=== PATIENT | male | born 1940 | race Caucasian/White ===

== ENCOUNTER → 2017-11-25 12:44 | Outpatient (CLI) | payer MEDICARE, OTHER ==
--- NOTE | ~2017-11-25 | EC ---
PATIENT:BIANKA CARRERA DATE OF SERVICE: 11/25/17 SEX: M MEDICAL RECORD: [id number] DATE OF : 42 LOCATION:[facility] AGE OF PATIENT: 77 ADMISSION DATE: 11/25/17 REFERRING PHYSICIAN: INTERPRETING PHYSICIAN: CHERISE KENNEDY MD ECHOCARDIOGRAM REPORT ECHO CHARGES 4 ECHO COMPLETE CLINICAL DIAGNOSIS: CAD/ANGINA/HTN ECHOCARDIOGRAPHIC MEASUREMENTS (adult normal given) AC root (d.<3.7cm) 3.4 cm LV Septum d (<1.2 cm> 1.6 cm Valve Excursion 1.6 cm LV Septum (systole) 1.8 cm Left Atria (s.<4.0cm> 3.3 cm LVPW d(<1.2cm) 1.6 cm RV (d.<2.3cm) 4.4 cm LVPW (sytole) 1.7 cm LV diastole(<5.6CM) 4.6 cm MV E-F(>70mm/sec) cm LV systole 3.4 cm LVOT Diameter 1.7 cm MV exc.(>10mm) 1.0 cm Est.ejection fraction (50-75%) % Pericardial Effusion N DOPPLER: LVIT cm/sec A 97.0 cm/sec E 73.0 cm/sec LA cm/sec RVSP 23 mmHg LVOT 119 cm/sec AOP1/2T m/s Asc. Ao 138 cm/sec RVOT cm/sec RA cm/sec PA cm/sec AV Gradient Peak 7.60 mmHg AV Mean 3.64 mmHg AV Area 2.7 cm MV Gradient Peak 4.97 mmHg MV Mean 2.44 mmHg MV Area cm COMMENTS: Diagrammer And Seamer: Megan PALACIOS Billing Assistant: 4 Dr. Kennedy TAPE# PACS DATE OF SERVICE: 11/25/2017 PROCEDURE: Transthoracic echocardiogram. FINDINGS: 1. The echocardiogram was difficult to visualize distinct structures. Overall, this is a qualitative view rather than quantitative. 2. The left ventricle appears to have left ventricular hypertrophy with inflow characteristics consistent with diastolic dysfunction. The EF is 60% to 65%. There does not appear to be any regional wall motion abnormalities. ECHOCARDIOGRAM REPORT [id number] BIANKA CARRERA 3. The left atrium is not well visualized, but appears to be grossly normal. 4. The aortic valve again not well visualized, but by Doppler interrogation appears to be normal. 5. The mitral valve not well visualized, but by Doppler evaluation appears to be overall normal. 6. The tricuspid valve appears to be normal. 7. The right ventricle appears to be normal size to mildly dilated as well as the right atrium, but otherwise normal function. CONCLUSIONS: There is evidence of hypertensive heart disease with normal LV systolic function and potentially mildly dilated right-sided structures. TRANSINT:[id number] Voice Confirmation ID: [id number] DOCUMENT ID: [id number] CHERISE KENNEDY MD at 1001 CC: [id number] DICTATION DATE: 11/26/17 1130 PRODUCTION SUPV: 11/26/17 1245 DEP CLI 11/25/17 [id number] [place] [address]
== END | disposition home or self-care (01) ==
LOC: D.ECHO 12:44
DX: I25.10 Atherosclerotic heart disease of native coronary artery without angina pectoris (principal); I20.9 Angina pectoris, unspecified; I10 Essential (primary) hypertension

== ENCOUNTER → 2017-12-01 16:55 | Outpatient (CLI) | payer MEDICARE, OTHER ==
[2017-12-01 17:58] LABS: CHOL - HDL RATIO 3.3 ratio (2.3-4.9); LDL-HDL RATIO 1.7 ratio (1.5-3.5)
== END | disposition home or self-care (01) ==
LOC: D.LABREF 16:55
PROVIDERS: Internal Medicine Cardiovascular Disease
DX: E78.5 Hyperlipidemia, unspecified (principal)

== ENCOUNTER 2018-06-08 20:36 | Inpatient (IN) | payer MEDICARE, OTHER ==
[~2018-06-08] VITALS: Ht 175.3 cm; Wt 85.7 kg
[2018-06-08 21:02] VITALS: BP 144/93
[2018-06-08 21:19] LABS: BASOPHILS 0.2 % (0-2); EOSINOPHILS 1.8 % (0-7); HEMATOCRIT 39.8 % (42.0-54.0); IMMATURE GRANULOCYTES 0.3 % (0-5); LYMPHOCYTES 11.3 % (15-50); MCH 31.9 pg (26.0-34.0); MCHC 35.2 g/dL (31.0-37.0); MCV 90.7 fL (80.0-100.0); MEAN PLATELET VOLUME 9.3 fL (7.4-10.4); MONOCYTES 11.6 % (2-11); NEUTROPHILS 74.8 % (40-80); PLATELET COUNT 176 10x3/uL (130-400); RBC 4.39 10x6/uL (4.20-6.10); RDW 13.1 % (11.5-14.5); WBC 9.3 10x3/uL (4.8-10.8)
[2018-06-08 21:40] VITALS: BP 161/93
[2018-06-08 21:46] LABS: ALBUMIN 3.8 g/dL (3.4-5.0); ALKALINE PHOSPHATASE 61 U/L (46-116); ALT (SGPT) 35 U/L (10-68); BILIRUBIN - TOTAL 0.88 mg/dL (0.2-1.3); CALC OSMOLALITY 270 mosm/kg (275-300); CALCIUM 8.4 mg/dL (8.5-10.1); CHLORIDE - SERUM 102 mmol/L (98-107); CREATININE - SERUM 0.8 mg/dL (0.6-1.3); GLUCOSE 127 mg/dL (74-106); POTASSIUM - SERUM 3.8 mmol/L (3.5-5.1); PROTEIN - SERUM 7.3 g/dL (6.4-8.2); SODIUM 135 mmol/L (136-145); UREA NITROGEN 10 mg/dL (7-18); eGFR NON AFRICAN AMERICAN > 90 mL/min (90-120)
[2018-06-08 21:54] LABS: AMYLASE - SERUM 61 U/L (25-115); CKMB 2.2 U/L (0.0-3.6); CREATINE KINASE 123 UL (21-232); LIPASE 116 U/L (73-393)
[2018-06-08 21:56] LABS: TROPONIN-I < 0.017 ng/mL (0.000-0.060)
[2018-06-08 23:40] VITALS: BP 147/94
[2018-06-09 01:46] VITALS: BP 118/74; BMI 27.9
[2018-06-09 04:25] VITALS: BP 100/55
[2018-06-09 05:53] LABS: ALBUMIN 3.4 g/dL (3.4-5.0); ALKALINE PHOSPHATASE 54 U/L (46-116); ALT (SGPT) 27 U/L (10-68); AMYLASE - SERUM 46 U/L (25-115); BILIRUBIN - TOTAL 0.88 mg/dL (0.2-1.3); CALC OSMOLALITY 274 mosm/kg (275-300); CALCIUM 8.2 mg/dL (8.5-10.1); CARBON DIOXIDE 24.8 mmol/L (21.0-32.0); CHLORIDE - SERUM 104 mmol/L (98-107); CKMB 3.4 U/L (0.0-3.6); CREATINE KINASE 165 UL (21-232); CREATININE - SERUM 0.7 mg/dL (0.6-1.3); GLUCOSE 108 mg/dL (74-106); LIPASE 68 U/L (73-393); POTASSIUM - SERUM 3.9 mmol/L (3.5-5.1); PROTEIN - SERUM 6.7 g/dL (6.4-8.2); SODIUM 138 mmol/L (136-145); UREA NITROGEN 8 mg/dL (7-18); eGFR NON AFRICAN AMERICAN > 90 mL/min (90-120)
[2018-06-09 06:10] LABS: TROPONIN-I < 0.017 ng/mL (0.000-0.060)
[2018-06-09 06:30] LABS: BASOPHILS 0.3 % (0-2); EOSINOPHILS 4.2 % (0-7); HEMATOCRIT 41.2 % (42.0-54.0); IMMATURE GRANULOCYTES 0.5 % (0-5); LYMPHOCYTES 15.4 % (15-50); MCH 31.1 pg (26.0-34.0); MCV 91.6 fL (80.0-100.0); MEAN PLATELET VOLUME 9.7 fL (7.4-10.4); MONOCYTES 13.8 % (2-11); NEUTROPHILS 65.8 % (40-80); PLATELET COUNT 184 10x3/uL (130-400); RDW 13.1 % (11.5-14.5); WBC 7.9 10x3/uL (4.8-10.8)
[2018-06-09] MEDS ORDERED: NORVASC5 MG PO (09:34)
[2018-06-09] MEDS ORDERED: ALBUTEROL SULF8.5 GM INH (09:36)
[2018-06-09] MEDS ORDERED: BAYER CHEWABLE81 MG PO (09:36)
[2018-06-09] MEDS ORDERED: LIPITOR20 MG PO (09:36)
[2018-06-09] MEDS ORDERED: ISOSORBIDE MONO60 M1 PO (09:37)
[2018-06-09] MEDS ORDERED: ALTACE10 MG PO (09:38)
[2018-06-09] MEDS ORDERED: NITROSTAT0.4 MG SL (09:39)
[2018-06-09] MEDS ORDERED: ULTRAM50 MG PO (09:40)
[2018-06-09] MEDS ORDERED: TOPROL XL25 MG PO (09:41)
[2018-06-09] MEDS ORDERED: PREDNISONE2.5 MG PO (09:42)
[2018-06-09 10:18] VITALS: Ht 175.3 cm; Wt 85.7 kg
[2018-06-09 11:45] VITALS: BP 120/76
[2018-06-09 16:18] VITALS: BP 124/68
[2018-06-09 22:10] VITALS: BP 125/81
[2018-06-10 05:33] LABS: BASOPHILS 0.4 % (0-2); EOSINOPHILS 3.6 % (0-7); HEMATOCRIT 43.5 % (42.0-54.0); HEMOGLOBIN 15.1 g/dL (13.5-17.5); IMMATURE GRANULOCYTES 0.3 % (0-5); LYMPHOCYTES 16.3 % (15-50); MCH 31.8 pg (26.0-34.0); MCHC 34.7 g/dL (31.0-37.0); MCV 91.6 fL (80.0-100.0); MEAN PLATELET VOLUME 9.8 fL (7.4-10.4); MONOCYTES 12.7 % (2-11); NEUTROPHILS 66.7 % (40-80); PLATELET COUNT 188 10x3/uL (130-400); RBC 4.75 10x6/uL (4.20-6.10); WBC 7.2 10x3/uL (4.8-10.8)
[2018-06-10 05:46] VITALS: BP 140/90
[2018-06-10 05:46] LABS: APTT 29.4 SECONDS (22.8-39.4); INR 1.05 (0.85-1.17); PROTIME 13.3 SECONDS (11.6-15.0)
[2018-06-10 05:58] LABS: ALBUMIN 3.5 g/dL (3.4-5.0); ALKALINE PHOSPHATASE 70 U/L (46-116); ALT (SGPT) 31 U/L (10-68); BILIRUBIN - TOTAL 1.35 mg/dL (0.2-1.3); CALC OSMOLALITY 273 mosm/kg (275-300); CALCIUM 8.3 mg/dL (8.5-10.1); CARBON DIOXIDE 24.7 mmol/L (21.0-32.0); CHLORIDE - SERUM 103 mmol/L (98-107); CREATININE - SERUM 0.7 mg/dL (0.6-1.3); GLUCOSE 87 mg/dL (74-106); POTASSIUM - SERUM 4.4 mmol/L (3.5-5.1); PROTEIN - SERUM 6.7 g/dL (6.4-8.2); SODIUM 138 mmol/L (136-145); UREA NITROGEN 9 mg/dL (7-18); eGFR NON AFRICAN AMERICAN > 90 mL/min (90-120)
[2018-06-10 08:51] VITALS: BP 145/80
[2018-06-10 12:45] VITALS: BP 162/98
[2018-06-10 22:57] VITALS: BP 90/50
[2018-06-11 05:41] VITALS: BP 111/56
[2018-06-11 05:41] LABS: BASOPHILS 0.1 % (0-2); EOSINOPHILS 0.6 % (0-7); HEMOGLOBIN 12.5 g/dL (13.5-17.5); IMMATURE GRANULOCYTES 0.1 % (0-5); LYMPHOCYTES 9.2 % (15-50); MCH 30.9 pg (26.0-34.0); MCHC 33.8 g/dL (31.0-37.0); MCV 91.4 fL (80.0-100.0); MEAN PLATELET VOLUME 9.6 fL (7.4-10.4); MONOCYTES 8.7 % (2-11); NEUTROPHILS 81.3 % (40-80); PLATELET COUNT 173 10x3/uL (130-400); RBC 4.05 10x6/uL (4.20-6.10)
[2018-06-11 05:49] LABS: CALC OSMOLALITY 271 mosm/kg (275-300); CALCIUM 7.8 mg/dL (8.5-10.1); CARBON DIOXIDE 25.4 mmol/L (21.0-32.0); CHLORIDE - SERUM 104 mmol/L (98-107); CREATININE - SERUM 0.8 mg/dL (0.6-1.3); GLUCOSE 123 mg/dL (74-106); POTASSIUM - SERUM 4.3 mmol/L (3.5-5.1); SODIUM 136 mmol/L (136-145); UREA NITROGEN 10 mg/dL (7-18); eGFR NON AFRICAN AMERICAN > 90 mL/min (90-120)
[2018-06-11 06:35] LABS: INR 1.1 (0.85-1.17); PROTIME 13.8 SECONDS (11.6-15.0)
[2018-06-11] MEDS ORDERED: PROTONIX40 MG PO (10:43)
[2018-06-11] MEDS ORDERED: PEPCID40 MG PO (10:44)
[2018-06-11 10:48] VITALS: BP 134/75
[2018-06-11 13:31] VITALS: BP 125/80
== END 2018-06-11 14:15 | disposition home or self-care (01) | DRG 445 ==
LOC: D.ER 20:36 → D.MS 23:49 → D.EDHOLD 23:49 → D.MS 23:50
PROVIDERS: Family Medicine; Internal Medicine Gastroenterology; Internal Medicine Nephrology; Surgery
PROC: 0DB68ZX Excision of Stomach, Via Natural or Artificial Opening Endoscopic, Diagnostic (ICD-10-PCS; 2018-06-10)
PROC: 0DB58ZX Excision of Esophagus, Via Natural or Artificial Opening Endoscopic, Diagnostic (ICD-10-PCS; 2018-06-10)
PROC: 0DB98ZX Excision of Duodenum, Via Natural or Artificial Opening Endoscopic, Diagnostic (ICD-10-PCS; principal; 2018-06-10 16:15)
DX: K81.0 Acute cholecystitis (principal); J98.11 Atelectasis; J96.11 Chronic respiratory failure with hypoxia; K22.10 Ulcer of esophagus without bleeding; I10 Essential (primary) hypertension; J44.9 Chronic obstructive pulmonary disease, unspecified; Z87.891 Personal history of nicotine dependence; I25.10 Atherosclerotic heart disease of native coronary artery without angina pectoris; Z95.5 Presence of coronary angioplasty implant and graft; Z99.81 Dependence on supplemental oxygen; Z79.52 Long term (current) use of systemic steroids; M50.90 Cervical disc disorder, unspecified, unspecified cervical region; K29.60 Other gastritis without bleeding; K26.9 Duodenal ulcer, unspecified as acute or chronic, without hemorrhage or perforation; K31.7 Polyp of stomach and duodenum

== ENCOUNTER → 2019-07-26 08:15 | Outpatient (CLI) | payer MEDICARE, OTHER ==
[2018-06-09 10:18] VITALS: BMI 27.9
[~2019-07-26 08:15] MED LIST: ALBUTEROL SULF8.5 GM INH; ALTACE10 MG PO; BAYER CHEWABLE81 MG PO; ISOSORBIDE MONO60 M1 PO; LIPITOR20 MG PO; NITROSTAT0.4 MG SL; NORVASC5 MG PO; PEPCID40 MG PO; PREDNISONE2.5 MG PO; PROTONIX40 MG PO; TOPROL XL25 MG PO; ULTRAM50 MG PO
--- NOTE | 2019-07-27 16:04 | EC ---
PATIENT:BIANKA CARRERA DATE OF SERVICE: 07/26/19 SEX: M MEDICAL RECORD: [id number] DATE OF : 42 [facility] AGE OF PATIENT: 79 ADMISSION DATE: 07/26/19 REFERRING PHYSICIAN: INTERPRETING PHYSICIAN: COREY NOBLE MD ECHOCARDIOGRAM REPORT ECHO CHARGES 4 ECHO COMPLETE Date: 07/26/19 CLINICAL DIAGNOSIS: H/O CAD/HTN ECHOCARDIOGRAPHIC MEASUREMENTS (adult normal given) AC root (d.<3.7cm) 3.1 cm LV Septum d (<1.2 cm> 1.2 cm Valve Excursion 1.9 cm LV Septum (systole) 1.7 cm Left Atria (s.<4.0cm> 3.1 cm LVPW d(<1.2cm) 1.2 cm RV (d.<2.3cm) 3.4 cm LVPW (sytole) 1.8 cm LV diastole(<5.6CM) 5.6 cm MV E-F(>70mm/sec) cm LV systole 3.1 cm LVOT Diameter 2.0 cm MV exc.(>10mm) cm Est.ejection fraction (50-75%) % DOPPLER: LVIT cm/sec A 98.0 cm/sec E 69.0 cm/sec LA cm/sec RVSP 31.4 mmHg LVOT 120 cm/sec AOP1/2T m/s Asc. Ao 124 cm/sec RVOT 72.0 cm/sec RA cm/sec PA 111 cm/sec AV Gradient Peak 6.2 mmHg AV Mean 3.1 mmHg AV Area 2.8 cm MV Gradient Peak 3.1 mmHg MV Mean 1.1 mmHg MV Area cm COMMENTS: OP - HC Research Soil Scientist: 1 PRICILLA NOLANOE Crusher Assembler: 3 Dr. Black TAPE# PACS Pericardial Effusion N DATE OF SERVICE: Adequate 2D, color flow, spectral Doppler, and M-mode. Borderline LVH. LV internal dimension and wall motion normal. EF is greater than or equal to 55%.. Aortic valve is tricuspid. No evidence of stenosis by Doppler interrogation. Left atrium is normal at 3.1 cm. Mitral valve shows no prolapse. Trace MR. Right-sided chambers are grossly normal. Trace TR. TRANSINT:[id number] Voice Confirmation ID: [id number] DOCUMENT ID: [id number] ECHOCARDIOGRAM REPORT [id number] BIANKA CARRERA GREGORY A MD at 1604 CC: [id number] DICTATION DATE: 07/27/19 1308 INDUSTRIAL REFRIGERATION MECHANIC: 07/27/19 1452 DEP CLI 07/26/19 [id number] [place] [address]
== END | disposition home or self-care (01) ==
LOC: D.HCCECHO 07-23 09:30
PROVIDERS: ATTEND Internal Medicine Interventional Cardiology
DX: I51.9 Heart disease, unspecified (principal)

== ENCOUNTER → 2019-09-13 08:29 | Outpatient (CLI) | payer MEDICARE, OTHER ==
[2018-06-09 10:18] VITALS: BMI 27.9
--- NOTE | ~2019-09-13 | ST ---
PATIENT:BIANKA CARRERA MEDICAL RECORD: [id number] SEX: M LOCATION:[facility] ORDER #: ADMISSION DATE: 09/13/19 AGE OF PATIENT: 79 REFERRING PHYSICIAN: INTERPRETING PHYSICIAN: RAVIN KELLEY MD DATE OF SERVICE: 09/13/2019 INDICATION: Angina, coronary artery disease, hypertension, shortness of breath. TECHNIQUE: He was exercised on standard Lexiscan protocol with 33 mCi of sestamibi injected at peak stress, 11 mCi used previously for rest images. FINDINGS: Gated SPECT reveals preserved ejection fraction at 73% with good wall motioning and thickening and brightening throughout all segments. SPECT imaging Cardiolite was used as myocardial perfusion agent. There is reversibility inferiorly, apically, and laterally. This includes the basal, mid, apical, inferior segments, the apex itself as well as apical lateral, mid lateral, basal lateral segments. The degree of reversibility is mild to moderate. The amount of myocardium involved is large. OVERALL IMPRESSION: This is an intermediate to high risk abnormal nuclear stress test, reversibility inferiorly, apically, and laterally suggestive of multivessel hemodynamically significant coronary artery disease. TRANSINT:[id number] Voice Confirmation ID: [id number] DOCUMENT ID: [id number] RAVIN KELLEY MD CC: FLACO MARTINEZ MD [id number] DICTATION DATE: 09/13/19 1702 OB SCRUB TECH: 09/14/19 0741 [facility] CLI 09/13/19 [id number] [place] [address]
== END | disposition home or self-care (01) ==
LOC: D.HCCARDIO 08:29
PROVIDERS: ATTEND Internal Medicine Interventional Cardiology
DX: I25.10 Atherosclerotic heart disease of native coronary artery without angina pectoris (principal)

== ENCOUNTER 2019-09-23 11:29 | Outpatient (CLI) | payer MEDICARE, OTHER ==
[~2019-09-23] VITALS: Ht 175.3 cm; Wt 92.7 kg
--- NOTE | ~2019-09-23 | HEMODYNAMI ---
PATIENT:BIANKA CARRERA MEDICAL RECORD: [id number] : 42 LOCATION:[facility] ADMISSION DATE: 09/23/19 Generatedon:09/23/201913:56 Patient name: BIANKA CARRERA Patient #: [id number] : 1940 Date of study: 09/23/2019 Page: Of Hemodynamic Procedure Report Patient Data Patient Demographics Procedure consent was obtained First Name: BIANKA Gender: Male Last Name: DEBI : 1940 [facility] Initial: CANDIDO Age: 79 year(s) Patient #: [id number] Race: SSN: [id number] Additional ID: [id number] Contact details [address]: [address] [place] [address] State: [place] City: [place] Zip code: [address] Past Medical History Allergies Allergen Reaction Date Comments Reported Other allergy 09/23/2019 coreg, PCN, PNEumococcal vaccine Admission Admission Data Admission Date: 09/23/2019 Admission Time: 11:29 Lab Results Lab Result Date: 09/23/2019 Lab Result Time: 0:00 Biochemistry Name Units Result Min Max BUN mg/dl 16 --(---*)-- 7 18 Creatinine mg/dl 0.8 --(-*--)-- 0.6 1.3 eGFR ml/min 90 --(*---)-- 90 120 NONAFRICAN CBC Name Units Result Min Max Hemoglobin g/dl 15.3 --(-*--)-- 13.5 17.5 Procedure Procedure Types Cath Procedure Diagnostic Procedure LHC LHC w/Coronaries Sedation Charges Moderate Sedation up to 15 minutes Procedure Description Procedure Date Procedure Date: 09/23/2019 Procedure Start Time: 13:44 Procedure End Time: 13:54 Procedure Staff Name Function Karl Mercado MD Performing Physician Meena Quiroz RT Monitor Kaitlin Dennis RT Scrub Aleena Mcdowell RN Nurse Indication Angina Procedure Data Cath Procedure Fluoroscopy Diagnostic fluoroscopy Total fluoroscopy Time: 1.5 time: 1.5 min min Diagnostic fluoroscopy Total fluoroscopy dose: 382 dose: 382 mGy mGy Contrast Material Contrast Material Type Amount (ml) Isovue 300 51 Entry Location Entry Primary Successful Side Size Upsize Upsize Entry Closure Succes sful Closure Location (Fr) 1 (Fr) 2 (Fr) Remarks Device Remarks Femoral Right 5 Fr Exoseal artery Estimated blood loss: 10 ml Diagnostic catheters Device Type Used For End Catheter Placement MULTIPACK JL 4.0 5Fr Procedure catheter MULTIPACK 3DRC 5Fr Procedure catheter MULTIPACK Pigtail 5 Fr Ventriculography catheter Procedure Complications No complications Procedure Medications Medication Administration Route Dosage Oxygen etCO2 Nasal cannula 2 l/min Lidocaine 2% added to field 20 Heparin Flush Bag added to field 2 bags (1000units/500ml NS) 0.9% NaCl I.V. 100 ml/hr Versed I.V. 2 mg Fentanyl I.V. 50 mcg Versed I.V. 1 mg Fentanyl I.V. 50 mcg Versed I.V. 1 mg Hemodynamics Rest HGB: 15.3 (g/dl) Heart Rate: 74 (bpm) Pressure Samples Time Site Value (mmHg) Purpose Heart Use Rate(bpm) 13:50 LV 128/7,15 Snapshot 74 13:50 AO 112/62(92) Pullback 85 13:50 LV 102/20,-1 Pullback 85 Gradients Valve Time Site 1 Site 2 Mean SEP/DFP Peak To Heart Use (mmHg) (sec/min) Peak Rate (mmHg) (bpm) Aortic 13:50 LV AO 0 43 0 85 102/20,-1 112/62(92) Calculations Valve P-P Mean Valve Index Valve Source Name Gradient Area Flow (cm2) Aortic 0 0 0 0 Snapshots Pre Cath Intra NCS Post Cath Vital Signs Time Heart Resp SPO2 etCO2 NIBP (mmHg) Rhythm Pain Sedation Rate (ipm) (%) (mmHg) Status Level (bpm) 13:20:48 83 16 95 0 140/96(124) NSR 0 (11) 10(A) , No pain 13:24:58 79 18 96 26.3 128/85(102) NSR 0 (11) 10(A) , No pain 13:29:04 75 19 96 24 133/88(108) NSR 0 (11) 10(A) , No pain 13:33:11 82 26 95 0 122/87(100) NSR 0 (11) 10(A) , No pain 13:37:15 80 13 95 0 128/85(98) NSR 0 (11) 10(A) , No pain 13:41:19 79 12 94 27.7 140/100(112) NSR 0 (11) 10(A) , No pain 13:45:29 85 13 95 1.5 132/87(112) NSR 0 (11) 9(A) , No pain 13:49:37 83 12 93 0 131/85(112) NSR 0 (11) 9(A) , No pain 13:52:10 85 12 96 0 134/89(104) NSR 0 (11) 10(A) , No pain Medications Time Medication Route Dose Verified Delivered Reason Notes Eff ectiveness by by 13:30:01 Oxygen etCO2 2 Karl Buffie used for Nasal l/min [facility] Mcdowell final inspector movement assembly cannula 13:30:08 Lidocaine 2% added 20ml Karl Karl for local to vial [facility] anesthetic field MD HARDY 13:30:17 Heparin Flush added 2 Karl Kalr used for Bag to bags [facility] procedure (1000units/500ml field MD HARDY NS) 13:30:26 0.9% NaCl I.V. 100 Karl Buffie Per ml/hr [facility] Felix Mcdowell RN physician 13:37:16 Versed I.V. 2 mg [address] [facility] Felix Mcdowell RN sedation 13:37:22 Fentanyl I.V. 50 Karl Buffie for [facility] [place] [facility] Felix Mcdowell RN sedation 13:44:06 Versed I.V. 1 mg Karl Buffie for JessFelix Mcdowell RN sedation 13:44:09 Fentanyl I.V. 50 Karl Robertsonie for [facility] [place] [place] [facility] Felix Mcdowell RN sedation 13:49:24 Versed I.V. 1 mg Karl Buffie for JessFelix Mcdowell RN sedation Procedure Log Time Note 13:06:50 Diagnostic Cath Status : Elective 13:07:06 Indication : Angina 13:07:34 Informed consent obtained and on chart 13:10:09 Lab Result : eGFR NONAFRICAN 90 ml/min 13:10:09 Lab Result : Creatinine 0.8 mg/dl 13:10:09 Lab Result : BUN 16 mg/dl 13:10:09 Lab Result : Hemoglobin 15.3 g/dl 13:11:02 Procedure Status Elective Heart Cath (OP). 13:11:04 Meena Quiroz RT(R) sent for patient. Start room use. 13:11:05 Time tracking: Regular hours (M-F 7:00 - 5:00) 13:11:08 Plan of Care:Hemodynamics will remain stable., Cardiac rhythm will remain stable., Comfort level will be maintained., Respiratory function will remain adequate., Patient/ family verbilizes understanding of procedure., Procedure tolerated without complication., Recovers from procedure without complications.. 13:13:27 Patient received from Pre/Post Procedure Room to CCL 2 Alert and oriented. Tansferred to table in Supine position. 13:13:28 Warm blankets applied, and lizzy hugger turned on for patient comfort. 13:13:28 Correct patient and procedure confirmed by team. 13:13:29 ECG and BP/O2 sat monitors applied to patient. 13:19:41 Vital chart was started 13:19:46 Full Disclosure recording started 13:19:59 H&P Date Dictated: 08/31/2019 Within 30 days and on chart., H&P Addendum completed by physician on day of procedure. (MUST COMPLETE FOR ALL OUTPATIENTS). 13:20:01 Pre-procedure instructions explained to patient. 13:20:03 Family in waiting room. 13:20:05 Patient NPO since Midnight. 13:20:42 Patient allergic to Other allergycoreg, PCN, PNEumococcal vaccine 13:20:46 Is the patient allergic to Iodine/contrast media? No. 13:20:48 Was the patient premedicated? Yes 13:20:51 Is patient on blood thinner?No 13:20:55 Patient diabetic? No. 13:20:59 Snore? Yes 13:21:02 Sleep apnea? No 13:21:11 Airway obstruction? Yes COPD, asthma 13:21:15 Dentures? No ? 13:21:21 Patient pain scale 0/10 ?. 13:21:31 IV patent on arrival in left forearm with 0.9% NaCl at [facility]. 13:21:38 Lab results completed and on chart. 13:22:01 Stress Test: yes; abnormal multi 13:22:05 Risk of Mortality: .4 13:22:08 Risk of blood transfusion: .5 13:22:11 Risk of JE: 2.6 13:22:17 Right groin area was prepped with chlora-prep and draped in sterile fashion 13:22:20 Alarms reviewed by R. N. 13:22:21 Sharps counted by scrub and verified by R.N. 13:22:40 Physician paged 13:30:01 Oxygen 2 l/min etCO2 Nasal cannula was administered by Aleena Mcdowell RN; used for procedure; Verbal order read back and verified. 13:30:08 Lidocaine 2% 20ml vial added to field was administered by Karl Mercado MD; for local anesthetic; Verbal order read back and verified. 13:30:17 Heparin Flush Bag (1000units/500ml NS) 2 bags added to field was administered by Karl Mercado MD; used for procedure; Verbal order read back and verified. 13:30:26 0.9% NaCl 100 ml/hr I.V. was administered by Aleena Mcdowell RN; Per physician; Verbal order read back and verified. 13:34:44 Physician arrived 13:34:44 --------ALL STOP TIME OUT------ 13:34:45 Final Timeout: patient, procedure, and site verified with staff and physician. All members of the team are in agreement. 13:35:25 Fire Safety Assessment: A--An alcohol-based skin anteseptic being used preoperatively., C--Open oxygen or nitrous oxide is being used., D--An ESU, laser, or fiber-optic light is being used. 13:35:30 Physical assessment completed. ASA score P 2 - A patient with mild systemic disease as per Karl Mercado MD. 13:35:37 1) 90+ Normal kidney functon but urine findings or structural abnormalities or genetic trait point to kidney disease. 13:35:40 Maximum allowable contrast dose (3.7 X eGFR X 0.75)249 ml. 13:35:45 Sedation plan: IV Moderate Sedation Medication:Versed, Fentanyl 13:35:55 Zero performed for pressure channel P1 13:35:58 Zero performed for pressure channel P1 13:36:02 Zero performed for pressure channel P1 13:37:16 Versed 2 mg I.V. was administered by Aleena Mcdowell RN; for sedation; Verbal order read back and verified. 13:37:22 Fentanyl 50 mcg I.V. was administered by Buffie Mcdowell RN; for sedation; Verbal order read back and verified. 13:37:25 Use device set Femoral Dx 13:37:27 ACIST Syringe (72953) opened to sterile field. 13:37:27 Bag Decanter (2002S) opened to sterile field. 13:37:28 Medline Cath Pack ([id number]) opened to sterile field. 13:37:29 ACIST Hand Control (18066) opened to sterile field. 13:37:30 ACIST Manifold (16292) opened to sterile field. 13:37:30 DIAGNOSTIC Multipack 5Fr catheter set ([id number]) opened to sterile field. 13:37:32 SHEATH 5FR Apache (BOT453) opened to sterile field. 13:37:33 EMERALD Guide Wire (840-323) opened to sterile field. 13:37:35 Tegaderm 4 x 4 (1626W) opened to sterile field. 13:43:46 Procedure started. 13:44:06 Versed 1 mg I.V. was administered by Aleena Mcdowell RN; for sedation; Verbal order read back and verified. 13:44:09 Fentanyl 50 mcg I.V. was administered by Aleena Mcdowell RN; for sedation; Verbal order read back and verified. 13:44:35 Local anesthetic to right femoral artery with Lidocaine 2% by Karl Mercado MD.INITIAL ACCESS ONLY 13:44:45 A 5 Fr sheath was inserted into the Right Femoral artery 13:47:42 A MULTIPACK JL 4.0 5Fr catheter was advanced over the wire and used for Procedure. 13:47:46 LCA angiography performed. 13:47:49 Catheter removed. 13:47:56 A MULTIPACK 3DRC 5Fr catheter was advanced over the wire and used for Procedure. 13:48:00 RCA angiography performed. 13:49:04 Catheter removed. 13:49:24 Versed 1 mg I.V. was administered by Aleena Mcdowell RN; for sedation; Verbal order read back and verified. 13:49:53 A MULTIPACK Pigtail 5 Fr catheter was advanced over the wire and used for Ventriculography. 13:50:28 EF : 55 % 13:50:32 Catheter removed. 13:50:57 Sheath removed intact; hemostasis achieved with Exoseal to the Right Femoral artery. 13:51:09 Procedure ended.(Physican Out) 13:51:47 Fluoroscopy time 01.50 minutes. 13:51:54 Flurop Dose total: 382 13:51:54 Fluoroscopy dose: 382 mGy 13:51:58 Dose Area Product 34816 mGy/cm. 13:52:02 Contrast amount:Isovue 300 51ml. 13:52:06 Maximum allowable dose exceeded? No. 13:52:07 Sharps counted by scrub and verified by R.N. 13:52:09 Insertion/operative site no bleeding no hematoma. 13:52:15 Post-op/insertion site Right Femoral artery dressed using a 4 x 4 and Tegaderm. 13:52:17 Post Procedure Pulses reassessed and unchanged 13:52:33 Post-procedure physical assessment completed. ASA score P 2 - A patient with mild systemic disease as per Karl Mercado MD. 13:52:38 Post procedure rhythm: unchanged. 13:52:46 Estimated blood loss: 10 ml 13:52:48 Post procedure instruction explained to patient.Patient verbalizes understanding. 13:53:20 Procedure type changed to Cath procedure, Diagnostic procedure, LHC, [facility] w/Coronaries, Sedation Charges, Moderate Sedation up to 15 minutes 13:53:22 Procedure and supply charges have been captured, reviewed, submitted and are correct. 13:53:40 Procedure Complication : No complications 13:53:43 Vital chart was stopped 13:53:46 [facility] Findings: mild to moderate CAD (<70%) 13:53:48 Operative report dictated upon procedure completion. 13:53:49 See physician's report for complete and final results. 13:54:03 Report given to Pre/Post Procedure Room. 13:54:07 Patient transfered to Pre/Post Procedure Room with Stretcher. 13:54:10 Procedure ended. 13:54:10 Full Disclosure recording stopped Device Usage Item Name Manufacture Quantity Catalog Hospital Part Current Minimal L ot# / Number Charge Number Stock Stock Serial# Code ACIST Acist 1 30284 [id number] 010838 263538 20 Syringe Medical (52777) Systems Inc Bag Microtek 1 484959 37888 619292 5 Decanter Medical Inc. () Medline Medline 1 [id number] 228972 65969 868727 5 Cath Pack ([id number]) ACIST Hand Acist 1 92581 398418 810395 382966 5 Control Medical (44484) Systems Inc ACIST Acist 1 63271 138981 883083 333448 5 Manifold Medical (66675) Systems Inc DIAGNOSTIC Cardinal 1 [id number] 059619 59307 859530 30 Multipack Health 5Fr catheter set (IN0263) SHEATH 5FR Terumo 1 [id number] 144539 201013 867734 5 Apache (BEH846) EMERALD Cardinal 1 502455 342460 494841 165758 5 Guide Wire Health (502455) Tegaderm 4 3M 1 1626W 694382 547734 678206 5 x 4 (1626W) MULTIPACK Cardinal 1 095576 5 JL 4.0 5Fr Health catheter MULTIPACK Cardinal 1 459934 5 3DRC 5Fr Health catheter MULTIPACK Cardinal 1 056806 5 Pigtail 5 Health Fr catheter Signature Audit [place] Stage Time Signature Unsigned Intra-Procedure 09/23/2019 Meena Quiroz 1:54:32 PM RT(R); Aleena Mcdowell RN; Karl Mercado MD Signatures Performing Physician : Signature : Karl Mercado MD Date : Time : Monitor : Meena Quiroz Signature : RT Date : Time : Nurse : Aleena Mcdowell RN Signature : Date : Time : [facility] [address], [place] [address]
[2019-09-23 12:24] VITALS: BP 143/92; Ht 175.3 cm; Wt 92.7 kg
[2019-09-23 12:29] LABS: BASOPHILS 0.3 % (0-2); EOSINOPHILS 1.3 % (0-7); HEMATOCRIT 43.6 % (42.0-54.0); HEMOGLOBIN 15.3 g/dL (13.5-17.5); IMMATURE GRANULOCYTES 0.6 % (0-5); LYMPHOCYTES 15.7 % (15-50); MCH 32.1 pg (26.0-34.0); MCHC 35.1 g/dL (31.0-37.0); MCV 91.6 fL (80.0-100.0); MEAN PLATELET VOLUME 9.4 fL (7.4-10.4); MONOCYTES 9.7 % (2-11); NEUTROPHILS 72.4 % (40-80); RBC 4.76 10x6/uL (4.20-6.10); RDW 13.4 % (11.5-14.5); WBC 7.1 10x3/uL (4.8-10.8)
[2019-09-23 12:44] LABS: ALT (SGPT) 32 U/L (10-68); CALC OSMOLALITY 277 mosm/kg (275-300); CALCIUM 9.2 mg/dL (8.5-10.1); CHLORIDE - SERUM 103 mmol/L (98-107); CHOL - HDL RATIO 3.3 ratio (2.3-4.9); CHOLESTEROL, TOTAL 145 mg/dL (0-200); CREATININE - SERUM 0.8 mg/dL (0.6-1.3); GLUCOSE 110 mg/dL (74-106); HDL CHOLESTEROL 44 mg/dL (32-96); LDL CHOLESTEROL 80 mg/dL (0-100); LDL-HDL RATIO 1.8 ratio (1.5-3.5); POTASSIUM - SERUM 4.3 mmol/L (3.5-5.1); SODIUM 138 mmol/L (136-145); TRIGLYCERIDE 108 mg/dL (30-200); UREA NITROGEN 16 mg/dL (7-18); eGFR NON AFRICAN AMERICAN > 90 mL/min (90-120)
[2019-09-23 12:47] LABS: PLATELET COUNT 209 10x3/uL (130-400)
--- NOTE | 2019-09-23 14:16 | NUR ---
REC TO ROOM VIA STRETCHER FROM NETWORK CABLER FOR RECOVERY. MONITORING INITIATED. O2 2LNC. VSS, HR 76 NSR, RR 12, SAT 95%, BP 125/85. R GROIN TEGADERM/4X4 CDI. SOFT, NO S/S BLEEDING/HEMATOMA. PPP. DROWSY. FAMILY AT BEDSIDE. DR NOBLE IN TO SPEAK W THEM PRIOR TO PT ARRIVAL.
--- NOTE | 2019-09-23 14:30 | NUR ---
PT RESTING COMFORTABLY. VSS. RIGHT GROIN DRESSING C/D/I. NO S/S OF HEMATOMA NOTED. CALL LIGHT WITHIN REACH. NO NEEDS AT THIS TIME.
--- NOTE | 2019-09-23 15:00 | NUR ---
RIGHT GROIN DRESSING C/D/I. NO S/S OF HEMATOMA NOTED. CALL LIGHT WITHIN REACH. VSS. PT'S HEAD OF BED INC TO 30 DEGREES. TOLERATED WELL. SET UP WITH SANDWICH TRAY AND DRINK.
--- NOTE | 2019-09-23 15:30 | NUR ---
RIGHT GROIN DRESSING C/D/I. NO S/S OF HEMATOMA NOTED. CALL LIGHT WITHIN REACH. VSS. PT EATING. DENIES NAUSEA/PAIN AT THIS TIME.
--- NOTE | 2019-09-23 15:50 | NUR ---
PIV D/C'D WITH CATH TIP INTACT. TOLERATED WELL. RIGHT GROIN DRESSING C/D/I. NO S/S OF HEMATOMA NOTED. PT INSTRUCTED TO GET UP AND DRESSED.
--- NOTE | 2019-09-23 16:10 | NUR ---
DISCUSSED DISCHARGE INSTRUCTIONS WITH PT AND PT'S FAMILY. THEY VOICED UNDERSTANDING. RIGHT GROIN DRESSING C/D/I. NO S/S OF HEMATOMA NOTED.
--- NOTE | 2019-09-23 16:20 | NUR ---
PT TAKEN OUT TO VEHICLE BY WHEELCHAIR. NO S/S OF DISTRESS NOTED. ALL BELONGINGS AND PAPERWORK IN HAND.
--- NOTE | 2019-09-24 08:49 | OP ---
PATIENT NAME: BIANKA CARRERA MEDICAL RECORD: [id number] :42 LOCATION:D[facility] ADMISSION DATE: SURGEON: COREY NOBLE MD DATE OF OPERATION: 09/23/2019 PROCEDURE: Left heart catheterization, selective coronary angiography, right femoral artery approach. CATHETERS: A 5-Maltese sheath, 5/4 left and right Lyle, 5/4 pig. The procedure was well tolerated. The patient was returned to yousif. Sheath was removed. ExoSeal device placed. FINDINGS: Left ventriculography in 30-degree DE LA O view: Normal wall motion and normal systolic function. CORONARY ANATOMY: LEFT MAIN: Left main is free of disease. LAD: Area of previous stenting is widely patent without evidence of restenosis. No progression of disease. CIRCUMFLEX: Free of disease. RIGHT CORONARY ARTERY: Dominant artery, gives rise to PDA, is somewhat tortuous. Luminal irregularities with no flow obstructive disease. TRANSINT:[id number] Voice Confirmation ID: [id number] DOCUMENT ID: [id number] COREY NOBLE MD at 0849 CC: [id number] DICTATION DATE: 09/23/19 1355 INVESTIGATIVE AGENT: 09/23/192054 DEP CLI 09/23/19 [id number] [place] [address]
== END 2019-09-23 16:20 | disposition home or self-care (01) ==
LOC: D.CATH 11:29
PROVIDERS: ATTEND Internal Medicine Interventional Cardiology
DX: I25.119 Atherosclerotic heart disease of native coronary artery with unspecified angina pectoris (principal); I10 Essential (primary) hypertension; R06.09 Other forms of dyspnea; J44.9 Chronic obstructive pulmonary disease, unspecified